=== PATIENT | female | born 1980 | race Caucasian/White ===

== ENCOUNTER 2016-07-07 22:40 | Inpatient (IN) | payer BC ==
[~2016-07-07] VITALS: Ht 167.6 cm; Wt 66.7 kg
--- NOTE | ~2016-07-07 | FD ---
ADMIT: 07/07/2016 RM/LOC: 219 [facility] MR#: [id number] [address] FREDO, MARIO N [address] [place] [address] Final Diagnosis SEX: F AGE: 36 : 1980 ADMISSION DATE: 07/07/2016 DISCHARGE DATE: 07/09/2016 FINAL DIAGNOSIS: 1. Term intrauterine at 40 weeks 2 days. 2. Active labor. PROCEDURE: Spontaneous vaginal delivery. Irena Blandon MD/ binu JOB #: [id number] CC: Jelena Johns MD, Attending Physician Darin Reyes MD, Family Physician
--- NOTE | ~2016-07-07 | HP ---
ADMIT: 07/07/2016 RM/LOC: 219 [facility] MR#: [id number] [address] MARIO YOO Daniela [address] [place] [address] History and Physical SEX: F AGE: 36 : 1980 DATE OF SERVICE: HISTORY OF PRESENT ILLNESS: This is a 36-year-old, G3, P2-0-0-2, who is presenting to Labor and Delivery with complaints of regular, painful contractions and noted cervical change to 6 cm. 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 She denies any loss of fluid or vaginal bleeding. PAST MEDICAL HISTORY: None. PAST SURGICAL HISTORY: She has had a knee arthroscopy. 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 ALLERGIES: NO KNOWN DRUG ALLERGIES. MEDICATIONS: She is on: 1. Folic acid. 2. vitamin daily. SOCIAL HISTORY: She is . No tobacco. No alcohol. No drug use. 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 [employer]AGE [employer] LABS: GBS is positive, 1-hour Glucola of 91. Hepatitis B surface antigen was negative. Syphilis RPR testing was nonreactive. Rubella is immune. Blood type is A positive. Antibody screen was negative. HIV is negative. PHYSICAL EXAMINATION: VITAL SIGNS: Blood pressure is 114/65, pulse is 62, temperature is 97.1. She is 96% on room air. heart tones are 120, moderate variability, positive accelerations, no decelerations noted. [place] shows contractions every 10 minutes. GENERAL: No acute distress. HEART: Regular rate and rhythm. No murmurs, rubs, or gallops. LUNGS: Clear to auscultation bilaterally to the bases. ABDOMEN: Positive bowel sounds. She is gravid. Estimated weight 3500 ADMIT: 07/07/2016 RM/LOC: 219 [facility] MR#: [id number] [address] MARIO YOO [address] [place] [address] History and Physical SEX: F AGE: 36 : 1980 g. Cervix is 680 -2. AROM with clear fluid. EXTREMITIES: No edema. ASSESSMENT: This is a 36-year-old, G3 ( 3), P2 (para 2)-0-0-2 with intrauterine at 40 weeks and 2 days. 1. Active labor. Now prolonged AROM (artificial rupture of membranes), and we will start Pitocin for augmentation and anticipate normal spontaneous vaginal delivery. 2. GBS (group B streptococcal) positive. The patient is already receiving penicillin for prophylaxis. 3. She is Rh (Rhesus) positive. Rubella immune. RhoGAM and MMR (measles, mumps, rubella) not indicated. Irena Blandon MD/ raffi JOB #: [id number] CC: Jelena Johns, Attending Physician Darin Reyes, Family Physician
[2016-07-10] MEDS ORDERED: PRENATAL VIT1 TAB PO (15:10)
[2016-07-10] MEDS ORDERED: MOTRIN-DPS800 MG PO (15:11)
[2016-07-10] MEDS ORDERED: NIPPLECREAM TP (15:11)
--- NOTE | 2016-07-24 08:59 | OR ---
ADMIT: 07/07/2016 RM/LOC: 219 [facility] MR#: [id number] [address] MARIO YOO Daniela [address] [place] [address] Operative/Delivery Room Report SEX: F AGE: 36 : 1980 SURGERY DATE: 07/08/2016 SURGEON: Irena Blandon MD PREOPERATIVE DIAGNOSES: 1. Term intrauterine at 40 and 2/7th weeks. 2. Active labor. POSTOPERATIVE DIAGNOSES: 1. Term intrauterine at 40 and 2/7th weeks. 2. Active labor. PROCEDURE: Spontaneous vaginal delivery. FINDINGS: Viable male with scores of 8 and 9. Weight of 7 pounds 15 ounces or 3.61 kg. Intact placenta with 3-vessel cord. No perineal lacerations were noted. ANESTHESIA: None. EBL: 250 mL. INDICATIONS FOR PROCEDURE: This is a 36-year-old, G3, P2-0-0-2 who presented to Labor and Delivery and active labor. Her has been complicated by history of a child with Dandy-Walker syndrome. She underwent AROM and Pitocin for augmentation. She is also GBS positive and did receive penicillin for prophylaxis. She progressed normally through labor and was found to be complete. DESCRIPTION OF PROCEDURE: With maternal expulsive efforts, head was delivered over intact perineum. No nuchal cord was noted. The rest of the infant then delivered. The was then placed on the mother's chest and delayed cord clamping x1 minute was deployed. The cord was then clamped and cut and cord blood was collected. The placenta then delivered spontaneously intact. On exam of the perineum, there was no perineal lacerations noted. Sponge and instrument counts were correct x2. COMPLICATIONS: None. DISPOSITION: Mom stable in delivery room. Infant to nursery. Irena Blandon MD/ raffi JOB #: [id number] CC: Jelena Johns, Attending Physician Darin Reyes, Family Physician
== END 2016-07-09 14:35 | disposition home or self-care (01) | DRG 775 ==
LOC: BC 22:40 → 2LDRP 22:40
PROC: 10907ZC Drainage of Amniotic Fluid, Therapeutic from Products of Conception, Via Natural or Artificial Opening (ICD-10-PCS; principal; 2016-07-08)
PROC: 10E0XZZ Delivery of Products of Conception, External Approach (ICD-10-PCS; principal; 2016-07-08)
DX: O48.0 Post-term pregnancy (principal); O99.824 Streptococcus B carrier state complicating childbirth; Z3A.40 40 weeks gestation of pregnancy; Z37.0 Single live birth